=== PATIENT | male | born 1995 | race African-American/Black ===

== ENCOUNTER 2018-08-27 08:31 | Emergency (ER) | payer OTHER ==
[~2018-08-27] VITALS: Ht 188 cm; Wt 154.2 kg
[~2018-08-27 08:31] MED LIST: IBUPROFEN 800800 M1 PO; NOHOMEMEDICATIONS; NORCO 5-325 TA1 EACH PO; TOBRAMYCIN SULFA5 ML OPHTHALMIC
[2018-08-27] MEDS ORDERED: ULTRAM 50MG TAB50 MG PO (08:52)
[2018-08-27] MEDS ORDERED: AMOXICILLIN 50500 MG PO (08:52)
[2018-08-27 09:00] VITALS: BP 148/82
== END 2018-08-27 09:05 | disposition home or self-care (01) ==
LOC: M.ERS 08:31
DX: K04.7 Periapical abscess without sinus (principal)